=== PATIENT | female | born 1990 | race Two or more races ===

== ENCOUNTER 2022-10-22 17:39 | Emergency (ER) | payer OTHER ==
[~2022-10-22] VITALS: Ht 177.8 cm; Wt 65.8 kg
[2022-10-22] MEDS ORDERED: RISPERDAL0.5 MG (17:56)
== END 2022-10-23 18:04 | disposition designated cancer center or children's hospital (05) ==
LOC: ER 17:39
DX: F20.89 Other schizophrenia (principal); R41.0 Disorientation, unspecified; Z20.822 Contact with and (suspected) exposure to COVID-19